=== PATIENT | female | born 1950 | race Caucasian/White ===

== ENCOUNTER → 2020-12-19 | Outpatient (CLI) | payer MEDICARE, OTHER ==
--- NOTE | 2020-12-26 11:19 | RAD ---
PROCEDURE: MG 2D BILAT SCREENING HISTORY: The patient is 70 years old and is seen for Reason: SCREENING / Spl. Instructions: / Histor y: . COMPARISON: May 30, 2018 and June 01, 2016 TECHNIQUE: CC and MLO views of both breasts were obtained. Images were processed by the [employer] computer-aided detection system. DENSITY: The breast parenchyma is extremely dense, which could obscure a lesion on mammography. FINDINGS: Right breast: Asymmetry within the right mid breast on MLO view superior approximately 4.9 cm from th e nipple. Scattered benign-appearing calcific effusions. The right upper outer breast mass, unchanged and likely intramammary lymph node. Left breast: Scattered benign-appearing calcifications. IMPRESSION: 1. Asymmetry within the right mid breast. Recommend right spot MLO compression view and ML view. Ult rasound may also be indicated. BI-RADS category 0 Incomplete: Needs additional imaging evaluation Patient entered into a reminder system for annual screening mammogram. Electronically signed by: Stalin Clemens DO (12/26/2020 11:16 AM) [id number]
== END ==
LOC: MAMMO 08:57
PROVIDERS: ATTEND Family Medicine
DX: Z12.31 Encounter for screening mammogram for malignant neoplasm of breast (principal)
CPT/HCPCS: 77067